=== PATIENT | male | born 1990 | race Caucasian/White ===

== ENCOUNTER 2022-10-09 02:47 | Emergency (ER) | payer OTHER, SELFPAY ==
[2022-10-09 02:48] VITALS: BP 137/100; PULSE 60; RESP 16; TEMP 36.4; O2SAT 99; BMI 28.3
--- NOTE | 2022-10-09 02:56 | CT_ITS ---
STUDY: CT ABDOMEN AND PELVIS WITH CONTRAST - URINARY TRACT REASON FOR EXAM: Male, 31 years old. abd pain RADIATION DOSAGE (If Supplied By Facility): CTDIvol = ( 12.66 ) mGy, DLP = ( 819.45 ) mGycm TECHNIQUE: IV 100mL Isovue-370 was administered. Transaxial images were obtained from the dome of the diaphragm to the symphysis pubis in the arterial, nephrographic and excretory phases. Multiplanar coronal and sagittal images were reformatted. Individualized Dose Optimization Techniques Were Used For This CT. COMPARISON: None FINDINGS: LOWER CHEST: Mildly enlarged left paraesophageal nodule measuring 16 x 10 mm.. LIVER: Normal. GALLBLADDER/BILE DUCTS: Cholelithiasis. PANCREAS: Normal. SPLEEN: Normal. ADRENAL GLANDS: Normal. KIDNEYS/URETERS/BLADDER: Cystic changes in the left kidney, too small to characterize. Nonobstructive punctate bilateral nephrolithiasis.. Mild urinary bladder wall thickening. Urinary bladder is decompressed, limiting evaluation. RETROPERITONEUM/AORTA: Normal. BOWEL/MESENTERY: No bowel dilatation or bowel wall thickening. Prominent small bowel loops in the midabdomen with air-fluid levels. Mild to moderate increased stool in the proximal colon and distal small bowel. Prominent mesenteric lymph nodes.. APPENDIX: Identified and normal. PERITONEUM: Normal. REPRODUCTIVE ORGANS: Normal. BONES/SOFT TISSUES: No acute abnormality. OTHER: None. CT/Abdomen/Pelvis W IV Cont ONLY IMPRESSION: 1. No bowel dilatation or bowel wall thickening. 2. Prominent mid small bowel loops with air-fluid levels, can be seen in the setting of enteritis. 3. Mild to moderate increased stool. 4. Nonobstructive bilateral nephrolithiasis. No hydroureteronephrosis. 5. Cholelithiasis. 6. Nonspecific 16mm left paraesophageal nodule. Electronically Signed: Devyn Dey MD at 4:45 EDT ,
--- NOTE | 2022-10-09 02:57 | EX.ED.DYSGE1 ---
HPI <Dr. Marija Marin MD - Last Filed: 10/10/22 18:51> History of Present Illness Chief Complaint: Abd Pain Onset/Context/Timing Onset: Today Current Severity: Moderate Maximum Severity: Severe Narrative Narrative: Patient presents with abdominal pain and vomiting. He states he felt well when he went to bed at 11 PM last evening. He presents to the emergency room around 3 AM stating that he had woken shortly ago with vomiting and abdominal pain. Pain is worse in the right upper abdomen and in the right shoulder. He states he had a similar attack around [facility] last year and was told it was like he had a gallbladder attack, although no work-up was done at that time. Patient last ate around 6:30 PM and had pizza. He felt well when he went to bed at 11. PFSH <Dr. Marija Marin MD - Last Filed: 10/10/22 18:51> PFS Medical History no medical history no medical history Home Medications NK 10/09/22 [History Last Taken Unknown] Allergy/AdvReac Type Severity Reaction Status Date / Time No Known Allergies Allergy Verified 10/09/22 02:52 Surgical History (Updated 10/09/22 @ 02:50 by Lindsey Otero) History of facial surgery Social History (Updated 10/09/22 @ 02:[address] Marija Marin MD) Smoking Status: Never smoker alcohol intake: never ROS <Dr. Marija Marin MD - Last Filed: 10/10/22 18:51> ROS ED Constitutional Constitutional ED: Denies chills or fever(s) Eyes Eyes: Denies discharge from eye(s) ENT ENT ED: Denies discharge from eye(s), rhinorrhea or sore throat Cardiovascular Cardiovascular: Denies chest pain or palpitations Respiratory/Chest Respiratory/Chest: Denies cough or dyspnea Gastrointestinal Gastrointestinal: Reports abdominal pain, nausea and vomiting; Denies diarrhea Genitourinary Genitourinary ED: Denies dysuria Musculoskeletal Musculoskeletal: Denies back pain or extremity pain Integumentary Denies Abrasions or rash Neurologic Neurologic: Denies headache(s) or weakness Psychiatric Psychiatric: Denies anxiety or depression Allergic/Immunologic Allergic/Immunologic ED: Denies lip swelling or urticaria EXAM <Dr. Marija Marin MD - Last Filed: 10/10/22 18:51> Physical Exam Const Vital Signs: 10/09/22 02:48 10/09/22 05:11 10/09/22 07:43 Temperature 97.5 F L Temperature Source Temporal Pulse Rate 60 65 Respiratory Rate 16 18 18 Blood Pressure 137/100 H 103/61 Blood Pressure Mean 112 75 Pulse Ox 99 95 Oxygen Delivery Method Room Air Room Air Positive well nourished and well developed General Appearance ED: well developed HEENT Reports normocephalic and head/scalp atraumatic Eyes PERRL and EOMs intact bilaterally Neck supple Chest Wall inspection of chest normal and palpation of chest normal Resp normal respiratory effort and clear to auscultation bilaterally Cardio regular rate and regular rhythm GI GI Narrative: Hypoactive bowel sounds. Diffuse abdominal tenderness to palpation, worse in the upper abdomen. Palpation: soft Extremity normal to inspection Neuro oriented x3 and no sensory deficits noted Sensorium / Orientation: alert Motor Exam: strength 5/5 throughout Psych mental status grossly normal Skin no rashes or lesions noted <Dr. Richmond Mendez MD - Last Filed: 10/09/22 09:33> Physical Exam Const Vital Signs: 10/09/22 02:48 10/09/22 05:11 10/09/22 07:43 Temperature 97.5 F L Temperature Source Temporal Pulse Rate 60 65 Respiratory Rate 16 18 18 Blood Pressure 137/100 H 103/61 Blood Pressure Mean 112 75 Pulse Ox 99 95 Oxygen Delivery Method Room Air Room Air MDM <Dr. Marija Marin MD - Last Filed: 10/10/22 18:51> [facility] MDM Narrative Medical decision making narrative: Patient was given morphine and Zofran along with IV fluids. Labwork obtained to evaluate for leukocytosis, anemia, and electrolyte derangement. CT scan of the abdomen pelvis with IV contrast obtained as patient came in during the overnight hours and I did not have ultrasound readily available. Lab Data Attestation: I reviewed the patient's lab results. Labs: Laboratory Results - last 24 hr 10/09/22 10/09/22 02:58 02:58 WBC 8.2 RBC 5.48 Hgb 16.2 Hct 49.0 MCV 89.4 MCH 29.6 MCHC 33.1 RDW Std Deviation 39.9 RDW Coeff of Kofi 12.1 Plt Count 238 MPV 9.2 Immature Gran % (Auto) 0.400 Neut % (Auto) 51.6 Lymph % (Auto) 38.7 Wharton % (Auto) 7.2 Eos % (Auto) 1.5 Baso % (Auto) 0.6 Absolute Neuts (auto) 4.3 Absolute Lymphs (auto) 3.18 Nucleated RBC % 0 Sodium 141 Potassium 3.9 Chloride 108 H Carbon Dioxide 27.0 Anion Gap 6 BUN 11 Creatinine 1.14 Estim Creat Clear Calc 90.83 Est GFR (MDRD) Af Amer 96 Est GFR (MDRD) Non-Af 79 BUN/Creatinine Ratio 9.6 L Glucose 101 Calcium 9.5 Total Bilirubin 0.40 Direct Bilirubin 0.15 AST 22 ALT 38 Alkaline Phosphatase 104 Total Protein 7.9 Albumin 4.2 Globulin 3.7 Lipase 82 H Radiography Diagnostic Testing: Clinical Impression(s) from Imaging Studies Abdomen/Pelvis CT 10/09/22 02:56 IMPRESSION: 1. No bowel dilatation or bowel wall thickening. 2. Prominent mid small bowel loops with air-fluid levels, can be seen in the setting of enteritis. 3. Mild to moderate increased stool. 4. Nonobstructive bilateral nephrolithiasis. No hydroureteronephrosis. 5. Cholelithiasis. 6. Nonspecific 16mm left paraesophageal nodule. Electronically Signed: Devyn Dey MD at 4:45 EDT , Gallbladder Ultrasound 10/09/22 05:08 IMPRESSION: Multiple gallstones. Positive sonographic Wills''s sign. Minimal thickening of the gallbladder wall at 3.3 mm. Electronically Signed: Ed Cardenas MD at 8:36 EDT , Differential Diagnosis Abdominal Pain: Appendicitis Reason(s) appendicitis less likely: Positive for Appendix Normal on Imaging, Cholecystitis and Pancreatitis Reason(s) Pancreatitis less likely: laboratory values not significantly altered from baseline Treatment and Re-Evaluation :: CBC and chemistry studies are unremarkable. LFTs are normal at this time. Lipase is minimally elevated at 82. CT scan of the abdomen pelvis reveals prominent mid small bowel loops with air-fluid levels which can be seen in the setting of enteritis. Cholelithiasis is noted. On repeat evaluation patient is resting more comfortably. He had rather abrupt onset of right upper quadrant pain with radiation to the right shoulder which is more concerning for cholelithiasis/cholecystitis. Given he does have stones noted on his CT scan right upper quadrant ultrasound is obtained. This is signed out to oncomig physician for final US read and disposition. <Dr. Richmond Mendez MD - Last Filed: 10/09/22 09:33> [facility] Lab Data Labs: Laboratory Results - last 24 hr 10/09/22 10/09/22 02:58 02:58 WBC 8.2 RBC 5.48 Hgb 16.2 Hct 49.0 MCV 89.4 MCH 29.6 MCHC 33.1 RDW Std Deviation 39.9 RDW Coeff of Kofi 12.1 Plt Count 238 MPV 9.2 Immature Gran % (Auto) 0.400 Neut % (Auto) 51.6 Lymph % (Auto) 38.7 Wharton % (Auto) 7.2 Eos % (Auto) 1.5 Baso % (Auto) 0.6 Absolute Neuts (auto) 4.3 Absolute Lymphs (auto) 3.18 Nucleated RBC % 0 Sodium 141 Potassium 3.9 Chloride 108 H Carbon Dioxide 27.0 Anion Gap 6 BUN 11 Creatinine 1.14 Estim Creat Clear Calc 90.83 Est GFR (MDRD) Af Amer 96 Est GFR (MDRD) Non-Af 79 BUN/Creatinine Ratio 9.6 L Glucose 101 Calcium 9.5 Total Bilirubin 0.40 Direct Bilirubin 0.15 AST 22 ALT 38 Alkaline Phosphatase 104 Total Protein 7.9 Albumin 4.2 Globulin 3.7 Lipase 82 H Radiography Diagnostic Testing: Clinical Impression(s) from Imaging Studies Abdomen/Pelvis CT 10/09/22 02:56 IMPRESSION: 1. No bowel dilatation or bowel wall thickening. 2. Prominent mid small bowel loops with air-fluid levels, can be seen in the setting of enteritis. 3. Mild to moderate increased stool. 4. Nonobstructive bilateral nephrolithiasis. No hydroureteronephrosis. 5. Cholelithiasis. 6. Nonspecific 16mm left paraesophageal nodule. Electronically Signed: Devyn Dey MD at 4:45 EDT , Gallbladder Ultrasound 10/09/22 05:08 IMPRESSION: Multiple gallstones. Positive sonographic Wills''s sign. Minimal thickening of the gallbladder wall at 3.3 mm. Electronically Signed: Ed Cardenas MD at 8:36 EDT , Treatment and Re-Evaluation Comments:: I took over care of this patient. I reviewed gallbladder ultrasound results when they came back. I reviewed the images and I agree with the interpretation. It shows multiple gallstones, there is a positive sonographic Wills sign, the common bile duct is 3.3 mm and the gallbladder wall is 3.3 mm as well, which is interpreted as mildly thickened. I reexamined the patient. He is nontender and feeling much better. It sounds like except for maybe having an episode in March around , this is the only major episode of biliary colic he has had. His labs look very good and reassuring. I discussed with Dr. Taylor, he agrees to have him follow-up as an outpatient given appropriate discharge instructions regarding this and reasons to return he is comfortable with that plan. Discharge Plan Triage Chief Complaint: Abd Pain ED Provider: Marija Marin Dx/Rx/DC Orders Clinical Impression: Biliary colic, Cholelithiasis Instructions: ED Diet, Low Fat, ED Gallstones with Biliary Colic Prescriptions: No Action NK [facility] Care Provider[facility] [place] Referrals: Pradip Taylor MD [Med Staff - Active Staff] - As soon as possible (Call to make an appointment) [facility] [Primary Care Provider] - Disposition Disposition: Home, Self Care Discharge Date/Time: 10/09/22 10:02
[2022-10-09 03:04] LABS: Absolute Lymphocyte Count 3.18 X10^3/uL (0.83-4.51); Absolute Neutrophil Count 4.3 X10^3/uL (2.0-7.7); Basophil# 0.05 X10^3/uL; Basophil% 0.6 % (0-1); Eosinophil# 0.12 X10^3/uL; Eosinophils% 1.5 % (0-5); Hemoglobin 16.2 g/dL (13.0-16.5); Lymphocyte # 3.18 X10^3/ul (0.83-4.51); Lymphocyte % 38.7 % (19-41); Mean Corp Hgb Conc 33.1 g/dL (32-36); Mean Corpuscular Hgb 29.6 pg (27.0-32.0); Mean Corpuscular Volume 89.4 fL (80-94); Mean Platelet Vol. 9.2 fl (6.2-12.0); Monocyte# 0.59 X10^3/uL; Monocyte% 7.2 % (0-10); NRBC Flagged by Analyzer 0 % (0-5); Neutrophil # 4.25 X10^3/uL (2.7-7.7); Neutrophil % 51.6 % (47-70); Platelet Count 238 K/mm3 (150-450); RBC Distribution Width CV 12.1 % (11.6-14.6); RBC Distribution Width SD 39.9 fl (35.1-43.9); Red Blood Count 5.48 M/mm3 (4.6-6.2); White Blood Count 8.2 K/mm3 (4.4-11.0)
[2022-10-09] MEDS: Ondansetron 4 MG/2 ML Vial IV (03:14)
[2022-10-09] MEDS: Morphine 4 MG/ML Syringe IV (03:16)
[2022-10-09] MEDS: 0.9% Normal Saline 1,000 ML 150 ML IV (03:16)
[2022-10-09 03:37] LABS: AST(SGOT) 22 U/L (15-37); Alanine Aminotransfer ALT/SGPT 38 U/L (16-61); Albumin, Serum 4.2 g/dL (3.2-5.0); Alkaline Phosphatase 104 U/L (45-117); Anion Gap 6 (5-15); BUN 11 mg/dL (7-18); BUN/Creat Ratio 9.6 RATIO (10-20); Bilirubin, Direct 0.15 mg/dL (0.00-0.30); Calcium,Total 9.5 mg/dL (8.5-10.1); Chloride 108 mmol/L (98-107); Creatinine, Serum 1.14 mg/dL (0.70-1.30); EST Glomerular Filtration Rate 79 mL/min (>60); Est Glom Filt Rate - Afr Amer 96 mL/min (>60); Estimated Creatinine Clearance 90.83 ml/min; Globulin 3.7 g/dL (2.2-4.2); Glucose 101 mg/dL (74-106); Lipase 82 U/L (13-75); Potassium 3.9 mmol/L (3.5-5.1); Protein, Total 7.9 g/dL (6.4-8.2); Sodium Level 141 mmol/L (136-145)
--- NOTE | 2022-10-09 05:08 | US_ITS ---
STUDY: ABDOMINAL ULTRASOUND - RIGHT UPPER QUADRANT REASON FOR VISIT: Male, 31 years old RUQ pain, cholelithiasis TECHNIQUE: Ultrasound evaluation of the right upper quadrant was performed with real-time and static candelaria-scale imaging. TECHNICAL QUALITY: Adequate. COMPARISON: Comparison is made with prior CT scan of the abdomen and pelvis done earlier in the day. FINDINGS: Liver: The liver measures 16 cm. There is normal echogenicity of the liver. The bile ducts are within normal limits. There is hepatic color flow. The direction of portal flow is hepatopetal. There is no demonstrated mass lesion. Gallbladder: Normal distended gallbladder. The gallbladder wall measures 3.3 mm. There is a positive sonographic Wills''s sign. There is no pericholecystic fluid. There are multiple echogenic structures within the gallbladder, consistent with multiple gallstones. Common Bile Duct (C.B.D.): The common bile duct measures 3.3 mm. Pancreas: There is nonvisualization of the pancreas due to overlying bowel gas. Right Kidney: Normal size of the right kidney. The right kidney measures 10.9 cm x 5.6 cm x 6.6 cm. Normal renal cortex. The right cortex measures 1.8 cm. There is no demonstrated renal mass or cyst. There is no right hydronephrosis. US/Gallbladder IMPRESSION: Multiple gallstones. Positive sonographic Wills''s sign. Minimal thickening of the gallbladder wall at 3.3 mm. Electronically Signed: Ed Cardenas MD at 8:36 EDT ,
[2022-10-09 05:11] VITALS: RESP 18
[2022-10-09 07:43] VITALS: BP 103/61; PULSE 65; RESP 18; O2SAT 95
== END 2022-10-09 10:02 | disposition home or self-care (01) ==
PROVIDERS: Emergency Provider Emergency Medicine; Visit Provider Emergency Medicine
DX: K80.50 Calculus of bile duct without cholangitis or cholecystitis without obstruction (principal); K80.20 Calculus of gallbladder without cholecystitis without obstruction
CPT/HCPCS: 74177; 76705; 80048; 80076; 83690; 85025; 96361; 96374; 96375; 99282; J7030; Q9967; A4216; J2405